=== PATIENT | female | born 1975 | race Caucasian/White ===

== ENCOUNTER → 2016-09-09 | Outpatient (CLI) | payer BC ==
[~2016-09-09] MED LIST: DEXILANT60 MG PO; PAROXETINE HCL20 MG PO
--- NOTE | ~2016-09-09 | CT2 ---
[facility] A Service of [facility] RADIOLOGY TEXT RESULTS PATIENT: GAURI CARLISLE LOCATION: [facility] : [birth year] UNIT #: [id number] AGE: [address]: Moe Bobo MD SEX: F ORDER DR: [id number] [facility] [address]. [place], [place] [address] [id number] O MR#: [id number] [facility] #: [id number] NAME: GAURI CARLISLE. : 1975 SEX: F STUDY DATE/TIME: 09/09/2016 16:11 UNIT: [facility] ROOM: STUDY DESCRIPTION: CT Abd and Pelv W Cont Attending Physician: Moe Bobo M.D. Referring Physician: Moe Bobo M.D. Ordering Physician: Moe Bobo M.D. Primary Care Physician: Edson Wray M.D. MEDICAL IMAGING REPORT This report is preliminary unless electronic signature is present EXAM Abdomen and pelvis CT with contrast 09/09/2016 INDICATIONS 41-year-old female with abdominal pain on the left side for 3 weeks. No history of malignancy. History of prior x2. TECHNIQUE Contrast-enhanced abdomen and pelvis CT was performed. This CT exam was performed with one or more of the following radiation dose reduction techniques: automatic exposure control, adjustment of mA and/or kV according to patient size, and iterative reconstruction. COMPARISON STUDIES No comparisons. FINDINGS CT ABDOMEN: The area of patient pain symptoms was marked with a capsule on the patient's scan. Deep to the marker there is no fluid collection or other focal abnormality on CT. Lung bases are clear. No effusion. No pericardial effusion. Aorta demonstrates no aneurysm. Spleen and adrenal glands are unremarkable. Pancreas and gallbladder are unremarkable. There is fatty infiltration of the liver. Kidneys demonstrate no hydronephrosis or inflammatory change. Tiny reactive-appearing retroperitoneal nodes. Small umbilical hernia containing fat only. CT PELVIS: Bladder unremarkable. No drainable fluid collection in the pelvis or free fluid. No adnexal mass. Follicles are present in both [facility] A Service of [facility] RADIOLOGY TEXT RESULTS PATIENT: GAURI CARLISLE LOCATION: [facility] : [birth year] UNIT #: [id number] AGE: [address]: Moe Bobo MD SEX: F ORDER DR: ovaries. Bowel is normal. Appendix normal. Inguinal canals unremarkable. There is no suspicious bone lesion. IMPRESSION 1. Negative contrast-enhanced abdomen and pelvis CT. There is no CT correlate for the patient's area of pain symptoms. There is no bowel obstruction, drainable fluid collection or focal area of inflammatory change and the appendix is normal. 2. Incidental fatty infiltration of the liver. Dictated by... Kurt Umanzor M.D. THIS IS AN ELECTRONICALLY VERIFIED REPORT Kurt Umanzor M.D. at 09/10/2016 7:17 PM Diane TD: 09/10/2016 16:51 JOB #: [id number] MEDICAL IMAGING REPORT Page 1 of 1 COPY
== END | disposition home or self-care (01) ==
LOC: CCAT 13:02
DX: R10.32 Left lower quadrant pain (principal); Z98.890 Other specified postprocedural states
CPT/HCPCS: 36415; 74177; 84703; Q9967

== ENCOUNTER → 2016-09-26 | Day surgery (SDC) | payer BC ==
--- NOTE | ~2016-09-26 | OR ---
Unit #: [id number] #: [id number] Patient: GAURI CARLISLE [id number] [address] [place], [place] [address] [id number] O MR#: [id number] NAME: GAURI CARLISLE ROOM: Date of Procedure: 09/26/2016 Admission Date: 09/26/2016 Surgeon: Moe Bobo M.D. : 1975 Attending Physician: Moe Bobo M.D. Primary Care Physician: Edson Wray M.D. OPERATIVE REPORT PREOPERATIVE DIAGNOSIS Left lower quadrant pain. POSTOPERATIVE DIAGNOSIS Left lower quadrant pain. PROCEDURE PERFORMED Colonoscopy to cecum. ANESTHESIA Monitored anesthesia care. FINDINGS The patient had normal colon to the cecum. SPECIMENS None. COMPLICATIONS None apparent. CONDITION The patient tolerated the procedure well. INDICATIONS FOR PROCEDURE The patient is a 41-year-old white female, who has had left lower quadrant pain intermittently. She had a CT scan of the abdomen and pelvis, which revealed no significant abnormality. She presents at this time for evaluation by colonoscopy. DESCRIPTION OF PROCEDURE After obtaining informed consent, the patient was brought to the endoscopy suite. After adequate monitored anesthesia care, had the colonoscope placed through the anus and slowly advanced to the level of the cecum without difficulty with the lumen always in view. The ileocecal valve was normal as was the cecum. The ascending colon was normal as was the hepatic flexure, transverse colon, splenic flexure, and descending colon. The sigmoid colon was normal and no diverticula were seen. The distal sigmoid colon, rectosigmoid, and rectum were all within normal limits. On retroflexing in the rectum to the anorectal junction, there was no significant abnormality seen. The scope was removed without difficulty. On digital examination, there was good sphincter tone. No masses Unit #: [id number] #: [id number] Patient: GAURI CARLISLE palpable. The patient tolerated the procedure well and went from the endoscopy suite to the recovery area in stable condition. RECOMMENDATIONS High-fiber diet, lots of liquids, tucks or wipes p.r.n. Dictated by... Moe Bobo M.D. JOSE/gus TD: 09/26/2016 09:32 JOB #: [id number] CC: Edson Wray M.D. [facility] OPERATIVE REPORT Page 1 of 1 X Moe Bobo MD PROCEDURE OPERATIVE NOTE
== END | disposition home or self-care (01) ==
LOC: COPS 05:43
PROVIDERS: Surgery
PROC: 0DJD8ZZ Inspection of Lower Intestinal Tract, Via Natural or Artificial Opening Endoscopic (ICD-10-PCS; principal; 2016-09-26 07:30)
DX: R10.32 Left lower quadrant pain (principal); R19.4 Change in bowel habit; K21.9 Gastro-esophageal reflux disease without esophagitis; R05 Cough; R51 Headache; G47.30 Sleep apnea, unspecified; Z91.19 Patient's noncompliance with other medical treatment and regimen; Z79.899 Other long term (current) drug therapy; Z98.890 Other specified postprocedural states; Z98.51 Tubal ligation status; Z83.3 Family history of diabetes mellitus; Z80.9 Family history of malignant neoplasm, unspecified; Z82.49 Family history of ischemic heart disease and other diseases of the circulatory system; Z84.89 Family history of other specified conditions; Z91.040 Latex allergy status
CPT/HCPCS: 84703